=== PATIENT | female | born 1970 | race Two or more races ===

== ENCOUNTER 2024-04-05 09:43 | Emergency (ER) | payer OTHER ==
[~2024-04-05] VITALS: Ht 162.6 cm; Wt 42.6 kg
[2024-04-05] MEDS ORDERED: GRALISE600 MG PO (09:58)
[2024-04-05] MEDS ORDERED: TOPIRAMATE ER25 M1 PO (09:59)
[2024-04-05] MEDS ORDERED: SIMVASTATIN40 MG PO (09:59)
[2024-04-05 11:45] LABS: HEMATOCRIT 45.4 % (36.0-45.00); MEAN CELL VOLUME 88.6 fL (80.00-100.00); MEAN CORPUSCULAR HEMOGLOBIN 29.2 pg (27.00-32.0); PLATELET COUNT 236 K/uL (150-450); RED BLOOD COUNT 5.12 M/uL (4.00-6.00); RED CELL DISTRIBUTION WIDTH 14.3 % (11.5-14.5)
[2024-04-05] MEDS ORDERED: ZITHROMAX TRI-500 MG PO (13:06)
[2024-04-05] MEDS ORDERED: ACETAMINOPHEN500 M1 PO (13:06)
[2024-04-05] MEDS ORDERED: GILTUSS COUGH-118 M1 PO (13:06)
== END 2024-04-05 13:22 | disposition home or self-care (01) ==
LOC: ER 09:46
PROVIDERS: Preventive Medicine Public Health & General Preventive Medicine
DX: J06.9 Acute upper respiratory infection, unspecified (principal); M79.7 Fibromyalgia; Z20.822 Contact with and (suspected) exposure to COVID-19